=== PATIENT | male | born 2000 | race Two or more races ===

== ENCOUNTER 2019-09-08 01:25 | Emergency (ER) | payer SELFPAY ==
[~2019-09-08] VITALS: Ht 182.9 cm; Wt 75.7 kg
[2019-09-08 01:28] VITALS: BP 158/64
[2019-09-08] MEDS ORDERED: OPHTHALMIC IRRIGATION SOLN 30ML OP ONE (01:55)
[2019-09-08] MEDS ORDERED: FLUORESCEIN SOD 1 MG TEST STRIP OP ONE (02:00)
[2019-09-08] MEDS ORDERED: TETRAHYDROZOLINE HCL 0.05% OPTH(EYE)SOL OP ONE (02:00)
[2019-09-08] MEDS ORDERED: FLUORESCEIN SOD 1 MG TEST STRIP EACHEYE ONE (03:07)
== END 2019-09-08 03:41 | disposition home or self-care (01) ==
LOC: EDBD 01:25 → ER 01:28
DX: H16.133 Photokeratitis, bilateral (principal); H16.203 Unspecified keratoconjunctivitis, bilateral; X32.XXXA Exposure to sunlight, initial encounter; Y93.89 Activity, other specified; Y92.89 Other specified places as the place of occurrence of the external cause; Y99.8 Other external cause status